=== PATIENT | male | born 1960 | race Caucasian/White ===

== ENCOUNTER 2018-11-09 17:00 | Outpatient (CLI) | payer BC, OTHER | END 2018-11-09 17:01 | disposition home or self-care (01) | LOC: SLEEPLAB 17:00 | PROVIDERS: ATTEND Internal Medicine | DX: G47.33 Obstructive sleep apnea (adult) (pediatric) (principal); R53.83 Other fatigue; R51 Headache; R06.83 Snoring; R35.1 Nocturia; I10 Essential (primary) hypertension | CPT/HCPCS: 95806 ==

== ENCOUNTER 2020-03-20 01:08 | Emergency (ER) | payer OTHER ==
[2020-03-20] MEDS ORDERED: Metoprolol Tartrate 25 MG TAB ONE (01:36)
[2020-03-20 01:46] LABS: #Basophils 0.1 thou/uL (0.0-0.2); #Eosinphils 0.4 thou/uL (0.0-0.7); #Lymphocytes 2.4 thou/uL (1.20-3.40); #Monocytes 0.7 thou/uL (0.11-0.59); #Neutrophils 3.1 thou/uL (1.40-6.50); %Basophils 1.2 % (0.0-1.0); %Eosinophils 5.4 % (0.0-10.0); %Lymphocytes 35.4 % (21.0-51.0); %Neutrophils 47.1 % (42.0-75.0); Mean Corpuscular HGB CONC 34.9 g/dL (32.0-36.0); Mean Corpuscular Volume 94.5 fL (78.0-98.0); Mean Platelet Volume 8.3 fL (7.4-10.4); Platelet Count 217 thou/uL (130-400); RBC Distribution Width 12.2 % (11.5-14.5); Red Blood Cell (RBC) Count 4.84 mill/uL (4.70-6.10); White Blood Cell (WBC) Count 6.6 thou/uL (4.8-10.8)
[2020-03-20 02:05] LABS: ALT (SGPT) 16 U/L (8-55); AST (SGOT) 25 U/L (5-34); Albumin 4.3 g/dL (3.5-5.0); Alkaline Phosphatase 82 U/L (40-110); Anion Gap 14 mmol/L (10-20); BUN (Urea Nitrogen) 23 mg/dL (8.4-25.7); Bilirubin, Total 0.2 mg/dL (0.2-1.2); CK (CPK) 167 U/L (30-200); Calc. Creatinine Clearance 0 mL/min (70-130); Calcium 9.3 mg/dL (7.8-10.44); Carbon Dioxide 27 mmol/L (22-29); Chloride 105 mmol/L (98-107); Estimated GFR-MDRD 62; Globulin 3.3 g/dL (2.4-3.5); Glucose 101 mg/dL (70-105); Potassium 3.9 mmol/L (3.5-5.1); Protein, Total 7.6 g/dL (6.0-8.3); Sodium 142 mmol/L (136-145)
--- NOTE | 2020-03-20 11:00 | RAD ---
CHEST 1 VIEW: INDICATION: History of palpitations and atrial fibrillation. COMPARISON: Prior exam dated 12/05/2013. FINDINGS: Heart size is within normal limits. The lungs are clear. No pleural effusion or pneumothorax is nelson dent. No acute osseous abnormality is evident. IMPRESSION: No acute cardiopulmonary abnormality. POS: BH
--- NOTE | 2020-03-25 16:55 | EKG ---
Test Reason : Blood Pressure : / mmHG Vent. Rate : 117 BPM Atrial Rate : 156 BPM P-R Int : 000 ms QRS Dur : 080 ms QT Int : 330 ms P-R-T Axes : 000 024 -71 degrees QTc Int : 460 ms Atrial fibrillation with rapid ventricular response with premature ventricular or aberrantly conducte d complexes Abnormal ECG Confirmed by HOMAR LOVING M.D. ([id number]), newspaper or periodical editor AVIS ZIMMERMAN ([id number]) on 03/25/2020 4:55:15 PM Referred By: Confirmed By:HOMAR LOVING M.D.
== END 2020-03-20 03:14 | disposition home or self-care (01) ==
LOC: ERS 01:08
DX: I48.91 Unspecified atrial fibrillation (principal); I49.9 Cardiac arrhythmia, unspecified; E03.9 Hypothyroidism, unspecified; I10 Essential (primary) hypertension; Z79.01 Long term (current) use of anticoagulants; Z79.899 Other long term (current) drug therapy
CPT/HCPCS: 71045; 80053; 82550; 84484; 85025; 93005; 96374

== ENCOUNTER 2020-07-19 08:17 | Outpatient (CLI) | payer OTHER ==
[2020-07-19 18:24] LABS: Hemoglobin 14.7 g/dL (14.0-18.0); Mean Corpuscular Hemoglobin 32.5 pg (27.0-31.0); Mean Corpuscular Volume 95.4 fL (78.0-98.0); Mean Platelet Volume 8.4 fL (7.4-10.4); Platelet Count 227 thou/uL (130-400); RBC Distribution Width 12.3 % (11.5-14.5); Red Blood Cell (RBC) Count 4.52 mill/uL (4.70-6.10); White Blood Cell (WBC) Count 5.6 thou/uL (4.8-10.8)
[2020-07-19 18:33] LABS: INR-International Normal Ratio 1.2; PTT 38.8 sec (22.9-36.1); Prothrombin Time 15.4 sec (12.0-14.7)
[2020-07-19 19:34] LABS: Anion Gap 11 mmol/L (10-20); BUN (Urea Nitrogen) 23 mg/dL (8.4-25.7); Calc. Creatinine Clearance 0 mL/min (70-130); Calcium 8.6 mg/dL (7.8-10.44); Carbon Dioxide 26 mmol/L (23-31); Chloride 107 mmol/L (98-107); Estimated GFR-MDRD 67; Glucose 70 mg/dL (80-115); Potassium 4.3 mmol/L (3.5-5.1); Sodium 140 mmol/L (136-145)
[2020-07-20 13:14] LABS: SARS-CoV-2 MS2 Positive; SARS-CoV-2 N Gene Negative; SARS-CoV-2 S Gene Negative; SARS-CoV-2 by NAA Not Detected (NotDetected); SARS-CoV-2 orf1ab Negative
== END 2020-07-19 08:18 | disposition home or self-care (01) ==
LOC: LABBT 08:17
PROVIDERS: ATTEND Internal Medicine Cardiovascular Disease
DX: Z01.818 Encounter for other preprocedural examination (principal); I48.91 Unspecified atrial fibrillation; Z20.828 Contact with and (suspected) exposure to other viral communicable diseases
CPT/HCPCS: 80048; 85027; 85610; 85730; 87635; 93005; 93010; U0003

== ENCOUNTER 2020-07-24 07:53 | Observation (INO) | payer OTHER ==
[2020-07-21 15:05] VITALS: BMI 32.9
[2020-07-24] MEDS ORDERED: Heparin 10,000 UNITS/ 10 ML VIAL ONE ×2 (09:04→12:36)
[2020-07-24] MEDS ORDERED: Lidocaine 1% (PF) 30 ML VIAL ONE (09:05)
[2020-07-24] MEDS ORDERED: Isoproterenol 0.2 MG/1 ML AMP ONE (09:05)
[2020-07-24] MEDS ORDERED: Fentanyl 100 MCG/2 ML VIAL ONE (09:44)
[2020-07-24] MEDS ORDERED: EPHEDRINE 25 MG/5 ML SYRINGE ONE (09:52)
[2020-07-24] MEDS ORDERED: PHENYLEPHRINE-NS 100 MCG/ML 10 ML SYRINGE ONE (09:52)
[2020-07-24] MEDS ORDERED: PROPOFOL 200 MG/20 ML VIAL ONE (09:52)
[2020-07-24] MEDS ORDERED: Rocuronium Bromide 10 MG/ML (10ML VIAL) ONE (09:52)
[2020-07-24] MEDS ORDERED: Phenylephrine 10 MG/ML VIAL ONE (10:07)
[2020-07-24] MEDS ORDERED: Heparin 25,000 units/D5W 500 ML ONE (10:31)
[2020-07-24] MEDS ORDERED: Protamine Sulfate 50 MG/5 ML VIAL ONE (12:36)
[2020-07-24] MEDS ORDERED: Acetaminophen/Codeine 30-300mg Tablet PO PRN ×3 (13:11→15:45)
--- NOTE | 2020-07-24 14:27 | OP ---
DATE OF PROCEDURE: 07/24/2020 PROCEDURE PERFORMED: Electrophysiology study and radiofrequency ablation REASON FOR PROCEDURE: Mr. Miller is a 60-year-old man with paroxysmal atrial fibrillation, who is here for a pulmonary venous isolation procedure. He has been anticoagulated with Eliquis without fail over a month. DESCRIPTION OF PROCEDURE: The patient received general anesthesia by Anesthesia specialist. The left and right femoral veins were prepped, draped, and anesthetized using subcutaneous lidocaine, and under ultrasound guidance, both femoral veins were cannulated x2. On the left side, an 8 and 11-Estonian sheaths were used to advance the intracardiac echocardiogram probe and DecaNav pace mapping probe into the right atrium. 3D map of the right atrium, His bundle, CS positions was obtained with DecaNav catheter. Following that, from the right femoral venous access, two 8-Estonian short sheaths were exchanged to two SL1 transseptal sheaths. IV heparin was administered at this point, which was adjusted throughout the procedure to keep ACT over 350. With the help of a powered Diagnovus transseptal needle, transseptal catheterization was performed x2. Through the SL1 sheaths, a ThermoCool SFST catheter and a 20-pole Lasso catheter were advanced to the left atrium. 3D map for left atrium was obtained. Standard pulmonary venous isolation of all 4 pulmonary veins was performed. Also, the posterior wall was isolated with a roof and an inferior line. At the site of the posterior wall matias, extra attention was paid to the esophageal temperatures, to avoid excessive heating, and any temperature increase was met with high-flow irrigation in that area. Following that, all 4 pulmonary veins were isolated, posterior was isolated as well. The catheter was advanced to the left ventricle and standard EP study was performed. LV pacing demonstrated Wenckebach cycle length retrograde at 310 milliseconds, concentric retrograde VA conduction was seen. Anterograde Wenckebach cycle length was 290 milliseconds. AV oscar ERP was 600/200 milliseconds. The baseline parameters were, in sinus rhythm, RR 990 milliseconds, WI 143 milliseconds, QRS 60 milliseconds, QT 410 milliseconds, the HV was normal at 45 milliseconds. Burst atrial pacing at the end of the procedure did not reinduce sustained arrhythmias on and off Isuprel. Isuprel was administered and any reconnections re-ablated. At this point, the catheter was removed from the left side, IV heparin was stopped and reversed with protamine. The femoral venous closure was performed with Vascade closure device under ultrasound guidance on all four femoral veins. Prior to removal of catheters, the intracardiac echo showed no change in the pericardium, and also cardiac silhouette did not change throughout the procedure. Total RF lesions were 99 lesions with total duration 29 minutes and 36 seconds at 40 [place]. CONCLUSION: 1. Successful 4 pulmonary venous isolation achieved. 2. Posterior wall was isolated with roof and inferoposterior line. 3. Normal sinus and AV oscar function. 4. No evidence of accessory pathway or dual AV oscar physiology. 5. No re-inducible arrhythmias at the end of the case on and off Isuprel. PLAN: Continue anticoagulation. Monitor for recurrent arrhythmias. Job ID: [id number] [facility]
--- NOTE | 2020-07-24 16:40 | RAD ---
Exam: Chest one view HISTORY:Status post ablation Comparison: 03/20/2020 FINDINGS: Cardiac silhouette: Normal Aorta: Unremarkable Pulmonary vessels: Normal Costophrenic angles: Clear LUNGS: No masses or consolidation. Pneumothorax: None Osseous abnormalities: None IMPRESSION: No acute cardiopulmonary process. No pneumothorax.
[2020-07-24] MEDS: Metoprolol Tartrate 25 MG TAB PO SCH (17:20)
[2020-07-24] MEDS ORDERED: Metamucil PACK PO SCH (21:00)
[2020-07-24] MEDS ORDERED: Gabapentin 300 MG CAP PO SCH (21:00)
[2020-07-24] MEDS ORDERED: Losartan 25 MG TAB PO SCH (22:15)
[2020-07-25] MEDS: Acetaminophen/Codeine 30-300mg Tablet PO PRN ×2 (02:52→09:48)
[2020-07-25] MEDS: Ketorolac Tromethamine 30 MG/ML VIAL IVP PRN ×2 (05:10→11:41)
[2020-07-25] MEDS ORDERED: Levothyroxine Sodium 50 MCG TAB PO SCH (06:00)
[2020-07-25 07:37] VITALS: BP 99/61; TEMP 98.7
[2020-07-25] MEDS: Metoprolol Tartrate 25 MG TAB PO SCH (09:42)
[2020-07-25] MEDS ORDERED: Rivaroxaban 10 MG TAB PO SCH (21:00)
[2020-07-25] MEDS ORDERED: Losartan 25 MG TAB PO SCH (21:00)
--- NOTE | 2020-07-26 17:34 | DIS ---
DATE OF ADMISSION: 07/24/2020 DATE OF DISCHARGE: 07/25/2020 DIAGNOSIS: Symptomatic atrial fibrillation. PROCEDURES PERFORMED: Electrophysiology study and radiofrequency ablation with total ablation time of 30 minutes. Successful 4 pulmonary vein isolation with posterior wall isolation. Normal sinus and AV oscar function. No evidence of accessory pathway. No re-inducible arrhythmias at the end of the case. SUBJECTIVE: Mr. Miller is a 60-year-old gentleman with a history of paroxysmal atrial fibrillation, which he was symptomatic with. He was appropriately anticoagulated with Eliquis without fail for over a month and was taken to the EP lab for an elective pulmonary venous isolation procedure. This was performed as detailed above. He has remained in sinus rhythm with no early recurrent arrhythmia episodes overnight. He has had no postoperative complications and his bilateral groin sites are stable, just slightly tender on the left side. All accesses were closed with Vascade closure device. He does have some chest discomfort this morning that was responsive to Toradol. He denies any shortness of breath, any appetite loss, any difficulty voiding or ambulating. He feels stable and is ready to discharge home. OBJECTIVE: Vital signs have been stable overnight with heart rates in the 80s. He is afebrile. Oxygenation is in the 90s on room air. Blood pressure 100/61. PHYSICAL EXAMINATION: GENERAL: He is in no apparent distress at the time of the exam. He is resting comfortably in bed. He is alert and oriented. NEUROLOGIC: Reveals no deficits. LUNGS: Clear to auscultation bilaterally. CARDIAC: Heart rate is regularly regular with crisp S1 and S2. There is no exam findings suggestive of tamponade. ABDOMEN: Benign. Hepatojugular reflux is negative. EXTREMITIES: Bilateral groin sites are stable without any evidence of hematoma or bleeding complication. Extremities are warm and dry to touch without clubbing, cyanosis, or edema. NEUROLOGIC: Gait was stable. DISCHARGE RECOMMENDATIONS: Follow up in 6 weeks. Take medications as prescribed. Contact [facility] with any postablation concerns. DISCHARGE MEDICATIONS: Continue the following medications on discharge; 1. Metoprolol tartrate 25 mg b.i.d. 2. Xarelto 20 mg q.p.m. 3. Metamucil as directed. 4. Olmesartan 20 mg at bedtime. 5. Synthroid 50 mcg daily. 6. Gabapentin 300 mg at bedtime. Discontinued medication, Multaq. New prescriptions: 1. Carafate 1 g p.o. q.i.d. 2. Protonix 40 mg p.o. daily x30 days. 3. Lasix 40 mg p.o. p.r.n. fluid retention, shortness of breath, congestive heart failure symptoms. 4. Potassium chloride 20 mEq p.r.n., to be taken only when taking Lasix. CONDITION AT DISCHARGE: Stable. Job ID: [id number]
== END 2020-07-25 12:05 | disposition home or self-care (01) ==
LOC: CCL 07:53 → 2SW 09:53
PROVIDERS: ADMIT Internal Medicine Cardiovascular Disease; ATTEND Internal Medicine Cardiovascular Disease
PROC: 02583ZZ Destruction of Conduction Mechanism, Percutaneous Approach (ICD-10-PCS; principal; 2020-07-24)
PROC: 02K83ZZ Map Conduction Mechanism, Percutaneous Approach (ICD-10-PCS; 2020-07-24)
PROC: 4A023FZ Measurement of Cardiac Rhythm, Percutaneous Approach (ICD-10-PCS; 2020-07-24)
PROC: 4A0234Z Measurement of Cardiac Electrical Activity, Percutaneous Approach (ICD-10-PCS; 2020-07-24)
DX: I48.0 Paroxysmal atrial fibrillation (principal); I10 Essential (primary) hypertension; G47.33 Obstructive sleep apnea (adult) (pediatric); E03.9 Hypothyroidism, unspecified; G25.81 Restless legs syndrome; E66.9 Obesity, unspecified; Z68.33 Body mass index [BMI] 33.0-33.9, adult; Z79.01 Long term (current) use of anticoagulants; Z79.899 Other long term (current) drug therapy; Z95.2 Presence of prosthetic heart valve
CPT/HCPCS: 71045; 76942; 85347; 92960; 93613; 93622; 93623; 93655; 93656; 93662; 96374; 96376; C1732; G0378; J1644; J1885; J2001; J2370; J2704; J2720; J3010